=== PATIENT | male | born 1985 | race African-American/Black ===

== ENCOUNTER 2024-04-10 04:47 | Emergency (ER) | payer OTHER ==
[~2024-04-10] VITALS: Ht 177.8 cm; Wt 86.0 kg
[2024-04-10 04:54] VITALS: TEMP 97.8; O2SAT 100
[2024-04-10] MEDS: ACETAMINOPHEN 325MG TABLET PO ONE (05:33)
[2024-04-10] MEDS: LIDOCAINE 5% PATCH TOP SCH (05:34)
[2024-04-10] MEDS ORDERED: IBUP-2028 PO (05:39)
[2024-04-10 06:04] VITALS: BP 129/82; PULSE 51; RESP 16; O2SAT 100
== END 2024-04-10 06:04 | disposition home or self-care (01) ==
LOC: ER 05:14
DX: M54.50 Low back pain, unspecified (principal); M79.642 Pain in left hand; F17.200 Nicotine dependence, unspecified, uncomplicated
CPT/HCPCS: 72131; 73110; 99284